=== PATIENT | female | born 1960 | race Caucasian/White ===

== ENCOUNTER → 2016-11-19 | Outpatient (CLI) | payer BC ==
[~2016-11-19] MED LIST: HYD25 PO; IBUP-1542 PO; TRAM-174 PO
[2016-11-19 10:07] LABS: ALBUMIN 4.4 g/dl (3.3-4.9); BASOPHIL # 0.1 10^3/ul (0.0-0.1); BASOPHILS % 0.9 % (0.0-2.0); CHLORIDE 104 mmol/L (97-110); EOSINOPHILS # 0.2 10^3/ul (0.0-0.5); EOSINOPHILS % 3.2 % (0.0-7.0); HEMATOCRIT 38.3 % (37.0-47.0); HEMOGLOBIN 12.7 g/dl (12.0-16.0); LYMPHOCYTES # 2.3 10^3/ul (0.8-2.9); LYMPHOCYTES % 36.5 % (15.0-51.0); MEAN CORPUSCULAR HEMOGLOBIN 29.3 pg (29.0-33.0); MEAN CORPUSCULAR HGB CONC 33.2 g/dl (32.0-37.0); MEAN CORPUSCULAR VOLUME 88.1 fl (82.0-101.0); MEAN PLATELET VOLUME 9.8 fl (7.4-10.4); MONOCYTE # 0.5 10^3/ul (0.3-0.9); MONOCYTES % 7.7 % (0.0-11.0); NEUTROPHIL # 3.2 10^3/ul (1.6-7.5); NEUTROPHILS % 51.7 % (39.0-77.0); PLATELET COUNT 191 10^3/UL (140-440); RED BLOOD COUNT 4.34 10^6/ul (4.20-5.40); RED CELL DISTRIBUTION WIDTH 13.4 % (11.5-14.5); SODIUM 145 mmol/L (135-144); UNCORRECTED WBC 6.2 10^3/ul (4.8-10.8); WHITE BLOOD COUNT 6.2 10^3/ul (4.8-10.8)
[2016-11-19 10:08] LABS: POTASSIUM 4.5 mmol/L (3.5-5.1)
[2016-11-19 10:09] LABS: ANION GAP 17 (8-16); BILIRUBIN,INDIRECT 0.2 mg/dl (0-1.1); BILIRUBIN,TOTAL 0.2 mg/dl (0.2-1.3); CARBON DIOXIDE 29 mmol/L (21-31); CHOLESTEROL 181 mg/dl (100-200); CREATININE 0.61 mg/dl (0.44-1.00)
[2016-11-19 10:10] LABS: ALANINE AMINOTRANSFERASE 34 IU/L (13-69); ALBUMIN/GLOBULIN RATIO 1.37; ALKALINE PHOSPHATASE 61 IU/L (42-121); ASPARTATE AMINO TRANSFERASE 23 IU/L (15-46); BLOOD UREA NITROGEN 14 mg/dl (7-20); CALCIUM 9.3 mg/dl (8.4-10.2); CHOL/HDL RATIO 3.8 RATIO; GLUCOSE 94 mg/dl (70-220); HDL CHOLESTEROL 47 mg/dl (37-92); TOTAL PROTEIN 7.6 g/dl (6.1-8.1); TRIGLYCERIDES 84 mg/dl (0-149)
[2016-11-19 10:14] LABS: CONDITION 1
[2016-11-19 10:56] LABS: C-REACTIVE PROTEIN < 0.5 mg/dl (0.0-0.9)
== END | disposition home or self-care (01) ==
LOC: LAB 09:14
PROVIDERS: ATTEND Internal Medicine
DX: E78.5 Hyperlipidemia, unspecified (principal); E55.9 Vitamin D deficiency, unspecified
CPT/HCPCS: 80053; 80061; 82306; 84436; 84443; 85025; 86140

== ENCOUNTER → 2017-02-15 | Outpatient (CLI) | payer BC ==
[2017-02-15 09:58] LABS: ADD SCAN DIFF NO
[2017-02-15 10:06] LABS: BASOPHIL # 0.1 10^3/ul (0.0-0.1); BASOPHILS % 0.9 % (0.0-2.0); EOSINOPHILS # 0.2 10^3/ul (0.0-0.5); EOSINOPHILS % 3.1 % (0.0-7.0); HEMATOCRIT 39.5 % (37.0-47.0); HEMOGLOBIN 12.8 g/dl (12.0-16.0); LYMPHOCYTES # 2.1 10^3/ul (0.8-2.9); LYMPHOCYTES % 36.5 % (15.0-51.0); MEAN CORPUSCULAR HEMOGLOBIN 28.9 pg (29.0-33.0); MEAN CORPUSCULAR HGB CONC 32.4 g/dl (32.0-37.0); MEAN CORPUSCULAR VOLUME 89.2 fl (82.0-101.0); MEAN PLATELET VOLUME 11.5 fl (7.4-10.4); MONOCYTE # 0.5 10^3/ul (0.3-0.9); MONOCYTES % 8.7 % (0.0-11.0); NEUTROPHIL # 2.9 10^3/ul (1.6-7.5); NEUTROPHILS % 50.6 % (39.0-77.0); PLATELET COUNT 191 10^3/UL (140-415); RED BLOOD COUNT 4.43 10^6/ul (4.20-5.40); RED CELL DISTRIBUTION WIDTH 13.1 % (11.5-14.5); WHITE BLOOD COUNT 5.8 10^3/ul (4.8-10.8)
[2017-02-15 10:24] LABS: INR 1.03; PROTIME 13.5 Sec (12.2-14.2); PT RATIO 1.1
[2017-02-15 10:25] LABS: PARTIAL THROMBOPLASTIN TIME 34.5 Sec (25.0-35.0)
[2017-02-15 10:31] LABS: ALBUMIN 4.6 g/dl (3.3-4.9); ALBUMIN/GLOBULIN RATIO 1.43; BILIRUBIN,INDIRECT 0.5 mg/dl (0-1.1); BILIRUBIN,TOTAL 0.5 mg/dl (0.2-1.3); CALCIUM 9.7 mg/dl (8.4-10.2); CHOL/HDL RATIO 3.9 RATIO; CREATININE 0.64 mg/dl (0.44-1.00); POTASSIUM 4.9 mmol/L (3.5-5.1); TOTAL PROTEIN 7.8 g/dl (6.1-8.1)
== END | disposition home or self-care (01) ==
LOC: LAB 09:17
PROVIDERS: ATTEND Internal Medicine
DX: R73.03 Prediabetes (principal); E78.5 Hyperlipidemia, unspecified; D68.9 Coagulation defect, unspecified
CPT/HCPCS: 80053; 80061; 83036; 85025; 85610; 85730

== ENCOUNTER 2017-06-14 15:19 | Emergency (ER) | payer BC ==
[~2017-06-14] VITALS: Wt 63.0 kg
[2017-06-14] MEDS ORDERED: KETOROLAC 30 MG INJ IM STA (16:12)
--- NOTE | 2017-06-14 16:18 | ERA ---
ER Documentation Chief Complaint Date/Time DATE: 06/14/17 TIME: 16:17 Chief Complaint bilateral groin pain non traumatic pain for the past few hrs. (JOO PALOMINO PA-C) HPI 56-year-old female with a chief complaints of leg pain. Worse with movement and palpation. History of endometrial cancer. No similar symptoms in past. Patient has recently become more active including biking. Patient denies incontinence, trauma, PND, pain exacerbated by Valsalva. Denies fever, chills, night sweats, weight loss, increased symptoms at night. Patient also denies history of cardiovascular disease, sciatica, spinal stenosis, fibromyalgia, HIV , IVDU, or other arthralgias. Patient describes no other alleviating/ aggravating factors. Patient has no other complaints and describes no other associated manifestations. Nursing notes have been reviewed and are consistent with history given. (JOO PALOMINO PA-C) ROS All systems reviewed and are negative except as per history of present illness. (JOO PALOMINO PA-C) Medications Home Meds Active Scripts Ibuprofen* (Motrin*) 600 Mg Tab, 600 MG PO Q8, #30 TAB Prov:GERRY BROWN 02/04/16 Reported Medications Hydrochlorothiazide* (Hydrochlorothiazide*) 25 Mg Tab, 25 MG PO DAILY, #30 TAB 02/04/16 Tramadol Hcl-Acetaminophen* (Tramadol Hcl-Acetaminophen*) 37.5-325 Mg Tab, 1 TAB PO Q6H Y for PAIN, TAB 02/04/16 Allergies Allergies: Coded Allergies: No Known Allergy (Unverified , 02/04/16) PMhx/Soc History of Surgery: Yes (TONSILLECTOMY; D&C, hysterectomy) Anesthesia Reaction: No Hx Neurological Disorder: No Hx Respiratory Disorders: No Hx Cardiac Disorders: Yes (htn) Hx Psychiatric Problems: No Hx Miscellaneous Medical Probl: No Hx Alcohol Use: No Hx Substance Use: No Hx Tobacco Use: No Smoking Status: Never smoker (JOO PALOMINO PA-C) Physical Exam Vitals Vital Signs Date Time Temp Pulse Resp B/P Pulse Ox O2 Delivery O2 Flow Rate FiO2 06/14/17 15:24 98.5 86 20 123/68 98 (THERESA LAW NP) Physical Exam Const: Healthy-appearing 56-year-old female in no apparent acute distress. Head: Atraumatic, normocephalic Eyes: Normal Conjunctiva, PERRLA, EOMI bilaterally. ENT: Normal External Ears, Nose and Mouth. Neck: Full range of motion..~ No meningismus. Resp: Clear to auscultation bilaterally Cardio: Regular rate and rhythm, no murmurs. Dorsalis pedis and posterior tibial pulses 2+ bilaterally. Cap refill less than 2 seconds bilaterally. Abd: Soft, non tender, non distended. Normal bowel sounds Skin: No petechiae or rashes Back: No midline or flank tenderness. No perianal numbness. Rectal tone intact. Ext: No cyanosis, or edema. Movement intact. Movement of right hip decreased secondary to pain. Neur: Awake and alert. Psych: Normal Mood and Affect (JOO PALOMINO PA-C) Results 24 hrs Current Medications Medications (Trade) Dose Ordered Sig/Angela Route PRN Reason Start Time Stop Time Status Last Admin Dose Admin Ketorolac Tromethamine (Toradol) 30 mg ONCE STAT IM 06/14/17 16:12 06/14/17 16:14 DC Ketorolac Tromethamine (Toradol) 60 mg ONCE STAT IM 06/14/17 16:22 06/14/17 16:23 DC 06/14/17 16:27 (THERESA LAW NP) Procedures/MDM 56-year-old female presenting with a chief complaint of right hip pain as described in history and physical examination. My attending Dr. Xavier who suggested CT of the hip. Patient had refused any narcotic pain medications. States she has taken 60 mg of Toradol IM before without complication and with good relief. Toradol 60 mg IM was administered with adequate relief of symptoms. Patient's ambulation improved. CT was read by the radiologist given the following impression: (JOO PALOMINO PA-C) Patient was signed out to me by Joo Gomez PA-C. I assessed the patient prior to discharge. Patient currently denies pain while sitting. Patient unable to ambulate and states she is in too much pain while trying to walk. Patient refusing any further pain medications. Patient is here with her doctor and states she would like to go home. Consulted with Dr. Xavier regarding this patient and he also examined patient. We agree that patient is appropriate for outpatient management and stable for discharge home. Return to ED for any high fever, chest pain, difficulty breathing, shortness breath, wheezing, vomiting, diarrhea, abdominal pain or any new or worsening symptoms. Patient verbalizes understanding. All questions answered at discharge. (THERESA LAW NP) Departure Diagnosis: Primary Impression: Leg pain Qualified Code: M79.604 - Pain of right lower extremity Condition: Stable JOO PALOMINO PA-C Jun 14, 2017 16:18 THERESA LAW NP Jun 14, 2017 18:59
[2017-06-14] MEDS ORDERED: KETOROLAC 60 MG INJ IM STA (16:22)
--- NOTE | 2017-06-14 17:39 | RADRPT ---
PROCEDURE: CT Pelvis without contrast. CLINICAL INDICATION: Severe right hip pain after fall this afternoon. The patient has a history of uterine cancer. TECHNIQUE: CT scan of the pelvis without contrast was performed on a multi-detector high resolution CT scanner. The patient was scanned without intravenous contrast. Coronal and sagittal reformatte d images were obtained from the axial source images. The total exam CTDI = 9.26 mGy and the DLP = S 261.98 mGy-cm. One or more of the following dose reduction techniques were used: - Automated exposure control. - Adjustment of the mA and/or kV according to patient size. - Use of iterative reconstruction technique. COMPARISON: CT dated 08/04/2016. FINDINGS: Genitourinary system: The urinary bladder is unremarkable. The uterus is surgically absent. The a dnexa are grossly unremarkable. Gastrointestinal system: The visualized bowel demonstrates no wall thickening or evidence of obstru ction. The appendix is in the right lower quadrant and is unremarkable. Peritoneum, lymphatics, and cardiovascular system: There is no free intraperitoneal air or free flu id. There is no adenopathy within the visualized lower abdomen or pelvis. There are iliac atheroscle rotic calcifications. Musculoskeletal system and soft tissues: There are no concerning osseous lesions. There is no acute fracture dislocation. There is no hip joint effusion and surrounding soft tissues are unremarkable . IMPRESSION: 1. No acute abnormality or findings to suggest a source of the patient's symptoms. 2. Unremarkable appearance of the right hip with no acute fracture or dislocation identified, as qu estioned. If clinical concern for occult fracture remains, MRI is recommended for further evaluatio n. 3. Vascular calcifications consistent with atherosclerosis. RPTAT: HLBP .Alli Diana MD, MD Date Time Electronically viewed and signed by .Alli Diana MD, MD on 06/14/2017 17:39 .P/
[2017-06-14 19:20] VITALS: BP 122/86; PULSE 82; RESP 16
== END 2017-06-14 19:22 | disposition home or self-care (01) ==
LOC: FTE 15:19
DX: M79.604 Pain in right leg (principal); I10 Essential (primary) hypertension
CPT/HCPCS: 72192; 96372; 99285; J1885

== ENCOUNTER → 2017-06-28 | Outpatient (CLI) | payer BC ==
[~2017-06-28] MED LIST changes: -HYD25 PO; +HYDR25TA6 PO
--- NOTE | 2017-07-16 14:32 | HKNOTE ---
DATE OF SERVICE: 06/28/2017 MAIN COMPLAINT: 1. Pain in the right hip and pelvis. 2. Pain in the right knee. HISTORY OF MAIN COMPLAINT: The patient is a 56-year-old female who is referred by Dr. Jean-Baptiste. The patient is a 56-year-old female who has had problems with her right knee for about a year. She saw Dr. Powers, who diagnosed arthritis and gave her cortisone injection into the knee. She took a fall recently and was seen in the emergency room where x- rays were obtained and she was told that she had a fractured pelvis. Note that she has been seen by Dr. 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 Pain complaints with regards to her hip, the pain is localized to the right groin and pubic area. She is able to walk without a walking aid. Her pain is aggravated by walking, weightbearing, and stair climbing. She does get rest pain and night pain. She has tramadol and Motrin, which she takes for the pain. She has a history of problems with her lower back. She is being treated with physical therapy. She has never had an MRI scan of the lumbar spine. Currently she is using a pair of crutches to get around. With regard to her right knee, the knee is occasionally unstable. She has to take stairs one at a time. The knee does not swell and does not lock, but it is unstable and she thinks that she fell, but when she fell it was because her knee gave way on her. She does limp all the time. She does not have a shoe lift. She can clip her toenails and tie her shoelaces. Sporting activities, tennis (obviously not at present). Past Orthopedic history previous orthopedic operations, none. Prior cortisone intake, only as above. Alcohol intake, none. Other joint problems, none. Lab tests for arthritis, yes. Results of the tests are questionable. Prior other injuries, states he is nonwork status, the patient is an RN at the [employer]. PAST MEDICAL HISTORY: The patient had a transient ischemic attack last year in February. PAST SURGICAL HISTORY: 1. Tonsillectomy, 1972. 2. Oophorectomy salpingectomy, [address] Joo Wiseman. DRUG ALLERGIES: "Narcotics," which include: 1. Vicodin. 2. Tylenol with codeine. MEDICATIONS: 1. Tramadol. 2. Motrin. 3. Rosuvastatin. 4. Aspirin. 5. Propranolol. FAMILY HISTORY: Both parents of strokes at a fairly young age. SYSTEMS REVIEW: Occasional nausea. Poor appetite, diabetes. Occasional leakage of urine. Cardiac murmur. Cancer history, endometrial carcinoma (had a hysterectomy). HABITS: Patient not smoke or drink alcoholic beverages. PHYSICAL EXAMINATION: The patient a fit looking, but overweight 56-year-old female. She walks with a pair of crutches. On examination of the right hip, a full range of motion with pain in the groin at limits of motion. Examination of the left hip with full range of motion without pain. Examination of the right knee, extension is full (painful). Flexion is full. Tender over the medial joint line. 1+ effusion. IMAGING: X-rays of the hip and pelvis were obtained imaging on 06/18/[address] Pietro Bower as showing "nondisplaced fractures involving the right superior and inferior pubic rami, right sacral ala and left superior pubic ramus as well. MRI of the right hip obtained on 06/18/2017. ASSESSMENT: 1. 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 2. Multiple undisplaced fractures around the right pelvis. 3. Probable torn meniscus in the right knee. MANAGEMENT: The patient was advised that as far as the pelvic fractures go, there is no treatment required. These fractures can be expected to heal uneventfully. She should continue using the crutches for about 6 weeks. She obviously will not be able to work for about 6 weeks minimum. Once these fractures have healed and she returns to full relatively normal, we will obtain an MRI scan of her right knee. She will be seen again in 1 months' time for evaluation. Dictated By: Kayden Mendez MD /coleman/michelle /Document#: [id number]
== END | disposition home or self-care (01) ==
LOC: HKI 15:12
DX: M16.11 Unilateral primary osteoarthritis, right hip (principal); S32.9XXD Fracture of unspecified parts of lumbosacral spine and pelvis, subsequent encounter for fracture with routine healing; W19.XXXD Unspecified fall, subsequent encounter; E11.9 Type 2 diabetes mellitus without complications; E66.3 Overweight; Z79.82 Long term (current) use of aspirin; Z86.73 Personal history of transient ischemic attack (TIA), and cerebral infarction without residual deficits; Z85.89 Personal history of malignant neoplasm of other organs and systems; Z90.710 Acquired absence of both cervix and uterus; Z90.721 Acquired absence of ovaries, unilateral
CPT/HCPCS: G0463

== ENCOUNTER → 2017-11-08 | Outpatient (CLI) | END | disposition home or self-care (01) ==

== ENCOUNTER → 2017-11-15 | Outpatient (CLI) | END | disposition home or self-care (01) ==

== ENCOUNTER → 2017-12-09 | Outpatient (CLI) | END | disposition home or self-care (01) ==

== ENCOUNTER 2018-08-31 16:14 | Emergency (ER) | END 2018-08-31 19:01 | disposition home or self-care (01) ==

== ENCOUNTER → 2018-09-01 | Outpatient (CLI) | END | disposition home or self-care (01) ==

== ENCOUNTER 2018-09-04 15:53 | Inpatient (IN) | END 2018-09-05 16:45 | disposition home or self-care (01) | DRG 563 ==

== ENCOUNTER 2019-05-10 09:23 | Emergency (ER) | payer BC ==
[~2019-05-10] VITALS: Ht 162.6 cm; Wt 69.3 kg
[~2019-05-10 09:23] MED LIST changes: +ALBU18HF INHALATION; +AZIT250T PO; +PROM5SYR2 PO; +TRAM50TA PO
[2019-05-10 09:27] VITALS: BP 131/81; PULSE 106; RESP 24; Ht 162.6 cm; Wt 69.3 kg
[2019-05-10] MEDS ORDERED: ALBUTEROL HFA 8 GM INHALER INH SCH ×2 (09:57→13:00)
[2019-05-10] MEDS ORDERED: PROMETHAZINE/DM (CUP) PO ONE (10:00)
--- NOTE | 2019-05-10 10:08 | ERD ---
ER Documentation Chief Complaint Chief Complaint cough and shortness of breath; throat pain; chest congestion x 7 days HPI 58-year-old female with history of endometrial carcinoma presents with complaint of cough and congestion for the past week. States she is also had some fevers though there is no fever today. Denies any treatments. Patient denies fever, night sweats, weight loss, fatigue, hemoptysis, wheezing, dyspnea, pleuritic chest pain, or orthopnea. ROS All systems reviewed and are negative except as per history of present illness. Medications Home Meds Active Scripts Azithromycin* (Zithromax*) 250 Mg Tablet, 250 MG PO .ZPACK DIRECTED, #6 TAB TAKE 500 MG (2 TABS) THE FIRST DAY THEN 250 MG (1 TAB) DAYS 2-5 Prov:YE GEE 05/10/19 Promethazine HCl/Codeine (Prometh-Codein 6.25-10 mg/5 ml) 5 Ml Syrup, 5 ML PO Q4, #4 OZ Prov:YE GEE 05/10/19 Albuterol Sulfate* (Ventolin HFA*) 18 Gm Hfa.aer.ad, 2 PUFF INHALATION Q4H, #1 INHALER Prov:YE GEE 05/10/19 Ibuprofen* (Ibuprofen*) 600 Mg Tablet, 600 MG PO Q6H PRN for PAIN, #30 TAB Prov:DENNIS SUTHERLAND DO 08/31/18 Tramadol Hcl* (Ultram*) 50 Mg Tablet, 100 MG PO Q6H PRN for PAIN, #20 TAB Prov:DENNIS SUTHERLAND DO 08/31/18 Ibuprofen* (Motrin*) 600 Mg Tab, 600 MG PO Q8, #30 TAB Prov:GERRY BROWN DO 02/04/16 Reported Medications Hydrochlorothiazide* (Hydrochlorothiazide*) 25 Mg Tab, 25 MG PO DAILY, #30 TAB 02/04/16 Tramadol Hcl-Acetaminophen* (Tramadol Hcl-Acetaminophen*) 37.5-325 Mg Tab, 1 TAB PO Q6H PRN for PAIN, TAB 02/04/16 Allergies Allergies: Coded Allergies: latex (Verified Adverse Reaction, Intermediate, 05/10/19) aloe (Verified Adverse Reaction, Mild, 05/10/19) silicone (Verified Adverse Reaction, Mild, 05/10/19) PMhx/Soc History of Surgery: Yes ([facility] 2012, TONSILECTOMY) Anesthesia Reaction: No Hx Neurological Disorder: No Hx Respiratory Disorders: No Hx Cardiac Disorders: No Hx Psychiatric Problems: Yes (H/O DEPRESSION) Hx Miscellaneous Medical Probl: Yes (OSTEOPOROSIS) Hx Alcohol Use: No Hx Substance Use: No Hx Tobacco Use: No Smoking Status: Never smoker FmHx Family History: No diabetes, No coronary disease, No other Physical Exam Vitals Vital Signs Date Temp Pulse Resp B/P (MAP) Pulse Ox O2 O2 Flow FiO2 Time Delivery Rate 05/10/19 98.4 106 24 131/81 97 09:27 (98) Physical Exam Const: No acute distress Head: Atraumatic Eyes: Normal Conjunctiva ENT: Normal External Ears, Nose and Mouth. Neck: Full range of motion. No meningismus. Resp: Rhonchi heard in upper lung parks bilaterally. No crackles. Equal breath sounds. Cardio: Regular rate and rhythm, no murmurs Abd: Soft, non tender, non distended. Normal bowel sounds Skin: No petechiae or rashes Back: No midline or flank tenderness Ext: No cyanosis, or edema Neur: Awake and alert Psych: Normal Mood and Affect Results 24 hrs Current Medications Medications Dose Sig/Angela Start Time Status Last (Trade) Ordered Route PRN Stop Time Admin Dose Reason Admin Albuterol 2 puff Q4H RESP 05/10/19 DC (Ventolin THERAPY INH 13:00 Hfa) 05/10/19 13:00 Promethazine 10 ml ONCE ONCE 05/10/19 DC 05/10/19 HCl/ PO 10:00 10:07 Dextromethorp 05/10/19 10:01 rodriguez (Phenergan-Dm ) Albuterol 2 puff Q4H RESP 05/10/19 05/10/19 (Ventolin THERAPY INH 09:57 10:05 Hfa) Procedures/MDM DIAGNOSTIC IMAGING REPORT Patient: ADALGISA BARRIOS : 1960 Age: 58 Sex: F MR #: [id number] DOS: 05/10/19 0943 Ordering MD: YE GEE Location: [facility] Room/Bed: PROCEDURE: XR Chest. CLINICAL INDICATION: Shortness of breath. TECHNIQUE: Single frontal view. COMPARISON: 12/22/2013 FINDINGS: There are increased interstitial markings as well as bilateral perihilar consolidations. The heart size is normal. There is no pleural effusion. There is no pneumothorax. IMPRESSION: There are increased interstitial markings as well as bilateral perihilar consolidations. Follow-up to resolution to exclude underlying neoplasm. RPTAT: QQ Physician Magali Date Time Electronically viewed and signed by Jack Angulo Physician on 05/10/2019 10:32 RD/ CC: YE GEE [id number] MDM: Patient was slightly tacky at presentation a pulse of 106 therefore low suspicion for possible pneumonia. Chest x-ray was performed. Results above. Patient most likely has a pneumonia but she needs to follow-up with her primary care given her history of carcinoma per the radiologist recommendation. I discussed with the patient and she agreed to follow-up with her primary care to rule out malignancy.. Patient most likely just has a pneumonia for which she will be treated with promethazine and Ventolin. I have low suspicion for tubercolosis, pleural effusion, acute heart failure, foreign body aspiration, pulmonary embolism, pneumothorax, or other emergent etiology. Patients O2 sat is normal and is not having difficulty breathing, therefore patient is fit for discharge. At this time, patient is stable for discharge and outpatient management. I have instructed the patient to follow-up with his/her primary care physician in 1-2 days. I have discussed with the patient the possibility of needing to see a specialist for further workup and imaging studies if symptoms persist. I have instructed the patient to promptly return to the ER for any new or worsening symptoms including but not limited to increased pain, fever, nausea, vomiting, weakness or LOC. The patient and/or family expressed understanding of and agreement with this plan. All questions were answered. Home care instructions were provided. DISCLAIMER: Inadvertent spelling and grammatical errors are likely due to EHR/dictation software use and do not reflect on the overall quality of patient care. Also, please note that the electronic time recorded on this note does not necessarily reflect the actual time of the patient encounter. Departure Diagnosis: Primary Impression: Bronchitis Additional Impression: Pneumonia Condition: Stable YE GEE May 10, 2019 10:08
== END 2019-05-10 11:54 | disposition home or self-care (01) ==
LOC: FTE 09:23
DX: J40 Bronchitis, not specified as acute or chronic (principal); J18.9 Pneumonia, unspecified organism; Z85.42 Personal history of malignant neoplasm of other parts of uterus; Z91.040 Latex allergy status
CPT/HCPCS: 71045

== ENCOUNTER → 2019-05-14 | Outpatient (CLI) | payer BC | END | disposition home or self-care (01) | LOC: RAD 15:30 | PROVIDERS: ATTEND Internal Medicine | DX: J18.9 Pneumonia, unspecified organism (principal) | CPT/HCPCS: 71046 ==

== ENCOUNTER → 2019-05-21 | Outpatient (CLI) | payer BC | END | disposition home or self-care (01) | LOC: RAD 12:02 | PROVIDERS: ATTEND Internal Medicine | DX: J18.9 Pneumonia, unspecified organism (principal) | CPT/HCPCS: 71046 ==

== ENCOUNTER → 2019-05-31 | Outpatient (CLI) | payer BC | END | disposition home or self-care (01) | LOC: RAD 10:49 | PROVIDERS: ATTEND Internal Medicine | DX: J18.9 Pneumonia, unspecified organism (principal) | CPT/HCPCS: 71046; 71100 ==

== ENCOUNTER → 2019-06-08 | Outpatient (CLI) | payer BC | END | disposition home or self-care (01) | LOC: C/S 08:55 | PROVIDERS: ATTEND Internal Medicine | DX: S22.41XA Multiple fractures of ribs, right side, initial encounter for closed fracture (principal); X58.XXXA Exposure to other specified factors, initial encounter; Y92.89 Other specified places as the place of occurrence of the external cause; J98.11 Atelectasis; K44.9 Diaphragmatic hernia without obstruction or gangrene; J18.9 Pneumonia, unspecified organism | CPT/HCPCS: 71250 ==